=== PATIENT | female | born 1970 | race Hispanic/Latino ===

== ENCOUNTER 2017-01-02 22:07 | Emergency (ER) | payer BC, OTHER ==
[2017-01-02] MEDS ORDERED: Sodium Chloride 0.9% 1,000 ML ONE (22:44)
[2017-01-02] MEDS ORDERED: Ondansetron HCl/PF 4 MG/2 ML Vial ONE (22:44)
[2017-01-02 22:55] LABS: Lactic Acid - Sepsis 2.5 mmol/L (0.5-2.2)
[2017-01-02 22:59] LABS: #Basophils 0.1 thou/uL (0.0-0.2); #Eosinphils 0.1 thou/uL (0.0-0.7); #Lymphocytes 1.5 thou/uL (1.20-3.40); #Monocytes 0.8 thou/uL (0.11-0.59); #Neutrophils 6.7 thou/uL (1.40-6.50); %Basophils 0.6 % (0.0-1.0); %Eosinophils 0.9 % (0.0-10.0); %Lymphocytes 16.2 % (21.0-51.0); %Monocytes 8.6 % (0.0-10.0); ALT (SGPT) 22 U/L (0-55); AST (SGOT) 13 U/L (5-34); Alkaline Phosphatase 88 U/L (40-150); Anion Gap 17 mmol/L (10-20); BUN (Urea Nitrogen) 14 mg/dL (7.0-18.7); Bilirubin, Total 0.3 mg/dL (0.2-1.2); Calc. Creatinine Clearance 0 mL/min (70-130); Calcium 9.4 mg/dL (7.8-10.44); Carbon Dioxide 27 mmol/L (22-29); Chloride 101 mmol/L (98-107); Estimated GFR-MDRD 77; Globulin 3.9 g/dL (2.4-3.5); Hematocrit 40.5 % (36.0-47.0); Mean Platelet Volume 6.9 fL (7.4-10.4); Protein, Total 7.9 g/dL (6.0-8.3); Red Blood Cell (RBC) Count 4.66 mill/uL (4.20-5.40); Troponin I Less than 0.010 ng/mL (< 0.028); White Blood Cell (WBC) Count 9.1 thou/uL (4.8-10.8)
--- NOTE | 2017-01-02 23:21 | RAD ---
PORTABLE UPRIGHT FRONTAL CHEST RADIOGRAPH 01/02/17 COMPARISON: 03/12/14 HISTORY: Painful breathing, chest pain. FINDINGS: Lungs are clear. Heart and mediastinal contours are stable. The cardiac silhouette is mildly promine nt. Osseous structures are grossly unremarkable. IMPRESSION: No acute findings. POS: [facility]
[2017-01-03] LABS: Bilirubin Negative (Negative); Blood, Urine Moderate (Negative); Glucose, Urine (Dipstick) Negative (Negative); Ketone, Urine Negative (Negative); Nitrite Positive (Negative); Protein, Urine (Dipstick) 100 mg/dL (Neg-Trace); Urobilinogen 0.2 mg/dL (0.2-1.0)
[2017-01-03 00:07] LABS: WBC/HPF 21-50 HPF (0-3)
[2017-01-03 00:08] LABS: Bacteria/HPF 3+ HPF (None Seen); Squamous Epithelial 0-3 HPF (0-3)
[2017-01-03 00:09] LABS: Methadone Not Detected (NotDetected); Methamphetamine Not Detected (NotDetected)
[2017-01-03] MEDS ORDERED: cefTRIAXone\\ROCEPHIN 2 GM VIAL ONE (00:32)
[2017-01-03] MEDS ORDERED: Sodium Chloride 0.9% 100 ML ONE (00:32)
[2017-01-03] MEDS ORDERED: Ketorolac Tromethamine 30 MG/ML VIAL ONE (00:32)
[2017-01-03] MEDS ORDERED: Sodium Chloride 0.9% 1,000 ML ONE ×2 (00:37→01:33)
[2017-01-03] MEDS ORDERED: Mag-Al Plus 1200 MG/1200 MG/120 MG/30 ML UDCUP ONE (02:15)
== END 2017-01-03 03:30 | disposition home or self-care (01) ==
LOC: NAV ERS 22:07
DX: R07.9 Chest pain, unspecified (principal); N39.0 Urinary tract infection, site not specified; I10 Essential (primary) hypertension; E66.9 Obesity, unspecified; Z79.899 Other long term (current) drug therapy
CPT/HCPCS: 51701; 71010; 80053; 80306; 81003; 81015; 82553; 83605; 83690; 84443; 84484; 84703; 85025; 85379; 87040; 87077; 87086; 87186; 93005; 96361; 96365; 96375; A4353; J0696; J1885; J2270; J2405; J7050